=== PATIENT | female | born 1980 | race Caucasian/White ===

== ENCOUNTER 2018-10-22 11:12 | Outpatient (CLI) | payer MEDICAID ==
[~2018-10-22] VITALS: Ht 149.9 cm; Wt 71.7 kg
[2018-10-22 11:32] VITALS: Ht 149.9 cm; Wt 71.7 kg
[2018-10-22] MEDS ORDERED: PREN1TAB13 PO (11:32)
[2018-10-22 11:33] VITALS: BP 102/55; PULSE 71; RESP 18
--- NOTE | 2018-10-22 14:06 | TRIAGE ---
OB Triage Datetime Report Generated by CPN: 10/22/2018 14:06 Datetime: 10/22/2018 13:30 Stage of : OB Triage Maternal Assessment Level of Consciousness: Fully Conscious Labor Evaluation Frequency: NONE Monitor Mode: External Resting Tone Wykoff: Relaxed Heart Rate FHR Baseline Rate: 135 Monitor Mode: External US Variability: Moderate 6-25 bpm Accelerations: 15X15 Pain Assessment Pain Scale: 0 Pain Goal: 3 Vaginal Exam Membrane Status: Intact Vaginal Bleeding: None Datetime: 10/22/2018 12:30 Stage of : OB Triage Maternal Assessment Level of Consciousness: Fully Conscious Labor Evaluation Frequency: NONE Monitor Mode: External Resting Tone Wykoff: Relaxed Heart Rate FHR Baseline Rate: 135 Monitor Mode: External US Variability: Moderate 6-25 bpm Accelerations: 15X15 Category: Category I Pain Assessment Pain Scale: 0 Pain Goal: 3 Vaginal Exam Membrane Status: Intact Vaginal Bleeding: None Datetime: 10/22/2018 11:27 Assessment Type: Triage Maternal Assessment Level of Consciousness: Fully Conscious DTR's/Clonus: DTRs 2+; No Clonus Headache: Denies Blurred Vision: No Respiratory Effort: Unlabored; Regular Rhythm; Equal Expansion Breath Sounds, Left: Clear and Equal Breath Sounds, Right: Clear and Equal Nausea/Vomiting: Denies RUQ Epigastric Pain: Denies Lower Extremities Edema: None Degree: None Upper Extremities Edema: None Degree: None Facial Edema: None Fall Risk Assessment History of Falling: (0) No Secondary Diagnosis: (0) No Ambulatory Aid: (0) Bedrest/Nurse Assist IV Therapy: (0) No Gait: (0) Normal/Bedrest/Immobile Mental Status: (0) Oriented to Own Ability Fall Score: 0 Fall Risk Score Definition: No Risk: No action required Monitor Mode: External Monitor Mode: External US Datetime: 10/22/2018 11:25 Time of Arrival: 10/22/2018 10:46 EGA: 28.2 Arrived By: Ambulatory Arrived From: Home Chief Complaint: PT. HERE C/O VAG. BLEED SINCE THIS AM. Movement: Present Contractions: Denies/Absent Rupture of Membranes: Denies Vaginal Bleeding: None Vaginal Discharge: Denies Recent Sexual Intercouse: Denies Abdominal Trauma: Not Applicable Patient Complaints: None Time Provider Notified: 10/22/2018 11:36 Provider Notified: JASWANT Initial Plan: BPP/CBC/T_S/U-TOX/UA/
--- NOTE | 2018-10-22 14:35 | PN ---
Triage Information Date/Time October 22, 2018 Reason for visit: Vag spotting / bleeding Weeks of Gestation 28 weeks and 2 days /Para 4 para 3 Diabetes: none Hypertention: none Additional information 38-year-old with IUP at 28 weeks and 2 days presents with complaint of light spotting this morning at 5 00. Denies any LOF, Decreased movement, Objective Vital Signs Date Temp Pulse Resp B/P (MAP) Pulse Ox O2 O2 Flow FiO2 Time Delivery Rate 10/22/18 98.7 71 18 102/55 Room Air 11:33 (71) Heart Rate: 130's Heart Rate Comments Cat 1 and appropriate for GA Contractions: None Exam GA: A&O, NAD abdomen: Soft non tender, Size consistent with date No tenderness, no rebound tenderness, no rigidity NST: Cat 1 No contractions noted on the monitor Laboratory Tests Test 10/22/18 11:00 10/22/18 12:17 Urine Color YELLOW Urine Clarity SLIGHTLY CLOUDY A Urine pH 7.0 Urine Specific Spring 1.017 Urine Ketones NEGATIVE Urine Nitrite NEGATIVE Urine Bilirubin NEGATIVE Urine Urobilinogen NEGATIVE Urine Leukocyte Esterase 2+ H Urine Microscopic RBC 2 Urine Microscopic WBC 7 H Urine Squamous Epithelial Cells FEW Urine Bacteria FEW A Urine Mucus FEW A Urine Hemoglobin 1+ H Urine Glucose NEGATIVE Urine Total Protein NEGATIVE Urine Opiates Screen Negative Urine Barbiturates Negative Urine Amphetamines Screen Negative Urine Benzodiazepines Screen Negative Urine Cocaine Screen Negative Urine Cannabinoids Negative White Blood Count 10.4 Red Blood Count 3.84 L Hemoglobin 11.9 L Hematocrit 36.0 L Mean Corpuscular Volume 93.8 Mean Corpuscular Hemoglobin 31.0 Mean Corpuscular Hemoglobin Concent 33.1 Red Cell Distribution Width 13.1 Platelet Count 261 Mean Platelet Volume 9.9 Immature Granulocytes % 0.900 H Neutrophils % 59.3 Lymphocytes % 27.1 Monocytes % 8.4 Eosinophils % 3.8 Basophils % 0.5 Nucleated Red Blood Cells % 0.0 Immature Granulocytes # 0.090 H Neutrophils # 6.2 Lymphocytes # 2.8 Monocytes # 0.9 Eosinophils # 0.4 Basophils # 0.1 Nucleated Red Blood Cells # 0.0 Results/Medications Result Diagram: 10/22/18 1217 Results 24 hrs Laboratory Tests Test 10/22/18 11:00 10/22/18 12:17 Urine Color YELLOW Urine Clarity SLIGHTLY CLOUDY A Urine pH 7.0 Urine Specific [place] 1.017 Urine Ketones NEGATIVE Urine Nitrite NEGATIVE Urine Bilirubin NEGATIVE Urine Urobilinogen NEGATIVE Urine Leukocyte Esterase 2+ H Urine Microscopic RBC 2 Urine Microscopic WBC 7 H Urine Squamous Epithelial Cells FEW Urine Bacteria FEW A Urine Mucus FEW A Urine Hemoglobin 1+ H Urine Glucose NEGATIVE Urine Total Protein NEGATIVE Urine Opiates Screen Negative Urine Barbiturates Negative Urine Amphetamines Screen Negative Urine Benzodiazepines Screen Negative Urine Cocaine Screen Negative Urine Cannabinoids Negative White Blood Count 10.4 Red Blood Count 3.84 L Hemoglobin 11.9 L Hematocrit 36.0 L Mean Corpuscular Volume 93.8 Mean Corpuscular Hemoglobin 31.0 Mean Corpuscular Hemoglobin Concent 33.1 Red Cell Distribution Width 13.1 Platelet Count 261 Mean Platelet Volume 9.9 Immature Granulocytes % 0.900 H Neutrophils % 59.3 Lymphocytes % 27.1 Monocytes % 8.4 Eosinophils % 3.8 Basophils % 0.5 Nucleated Red Blood Cells % 0.0 Immature Granulocytes # 0.090 H Neutrophils # 6.2 Lymphocytes # 2.8 Monocytes # 0.9 Eosinophils # 0.4 Basophils # 0.1 Nucleated Red Blood Cells # 0.0 Imaging Results PROCEDURE: US OB biophysical profile. CLINICAL INDICATION: decreased movements, vaginal bleeding TECHNIQUE: Multiple sonographic images of the pelvis were obtained. The images were reviewed on a PACS workstation. COMPARISON: No prior studies are available for comparison. FINDINGS: There is a single live intrauterine gestation. Cardiac activity is present with 142 beats per minute. There is a vertex presentation. The placenta is posterior. There is no evidence of placental abruption. There is a normal amount of amniotic fluid with an YELENA = 11.7 cm. Biophysical profile: movement 2/2 tone 2/2. breathing 2/2 YELENA 2/2 Total 03/16 RPTAT: AA . IMPRESSION: Normal biophysical profile. . Disposition: Discharge Assessment/Plan IUP at 28 weeks and 2 days spotting, resolved Ultrasound does not show any evidence of abruption or previa No evidence of labor or abruption Spotting resolved RH positive labor precaution and kick counts discusseed Follow up in 48 hours after DC from the hospital discussed Patient verbalized understanding, all questions were answered to the patient's best satisfaction BESSIE MAN MD Oct 22, 2018 14:35
== END 2018-10-22 14:20 | disposition home or self-care (01) ==
LOC: L-D 11:12 → OBT 11:12
PROVIDERS: ATTEND Obstetrics & Gynecology
DX: O46.8X2 Other antepartum hemorrhage, second trimester (principal); Z3A.28 28 weeks gestation of pregnancy
CPT/HCPCS: 76818; 80307; 81001; 85025; 86850; 86900; 86901; 87086; Z7500; G0463

== ENCOUNTER 2019-01-05 20:28 | Inpatient (IN) | payer MEDICAID ==
[~2019-01-05] VITALS: Ht 144.8 cm; Wt 78.8 kg
[~2019-01-05 20:28] MED LIST: PREN1TAB13 PO
[2019-01-05 21:04] VITALS: BP 106/63; PULSE 79; RESP 18; Ht 144.8 cm; Wt 78.8 kg
[2019-01-05] MEDS ORDERED: LACTATED RINGER'S 1,000 ML IV SCH (21:54)
[2019-01-05] MEDS ORDERED: IBUPROFEN 600 MG TAB PO PRN (22:00)
[2019-01-05] MEDS ORDERED: OXYTOCIN 30 UNITS/LR 500 ML IV PRN (22:00)
[2019-01-05] MEDS ORDERED: CARBOPROST 250 MCG INJ IM PRN (22:00)
[2019-01-05] MEDS ORDERED: BUTORPHANOL 2 MG INJ IV PRN ×2 (22:00)
[2019-01-05] MEDS ORDERED: AMPICILLIN 2 GM/NS (PMX) 100 ML IV ONE (22:00)
[2019-01-05] MEDS ORDERED: MISOPROSTOL 200 MCG TAB PR PRN (22:00)
[2019-01-05] MEDS ORDERED: METHYLERGONOVINE 0.2 MG INJ IM PRN (22:00)
[2019-01-05] MEDS ORDERED: LIDOCAINE 1% (MPF) 30 ML INJ INJ PRN (22:00)
[2019-01-05] MEDS ORDERED: OXYTOCIN 30 UNITS/LR 500 ML IV SCH ×3 (22:00)
--- NOTE | 2019-01-05 22:16 | TRIAGE ---
OB Triage Datetime Report Generated by CPN: 01/05/2019 22:16 Datetime: 01/05/2019 22:11 Stage of : OB Triage Labor Evaluation Frequency: Occasional Monitor Mode: Palpation Duration (sec)2399: 50-60 Pattern: Normal: <= 5 Contractions in 10 Minutes Resting Tone Noonday: Relaxed Heart Rate FHR Baseline Rate: 130 Monitor Mode: External US Variability: Moderate 6-25 bpm Accelerations: 15X15 Decelerations: None Category: Category I Pain Assessment Pain Scale: 3 Pain Presence: Intermittent Pain Type: Contraction Pain Location: Abdomen Pain Relief Measures: Comfort Measures Datetime: 01/05/2019 21:22 Stage of : OB Triage Labor Evaluation Frequency: Occasional Monitor Mode: Palpation Duration (sec)2399: 50-60 Quality: Mild Pattern: Normal: <= 5 Contractions in 10 Minutes Resting Tone Noonday: Relaxed Heart Rate FHR Baseline Rate: 130 Monitor Mode: External US Variability: Moderate 6-25 bpm Accelerations: 15X15 Decelerations: None Category: Category I Pain Assessment Pain Scale: 3 Pain Presence: Intermittent Pain Type: Contraction Pain Location: Abdomen Pain Relief Measures: Comfort Measures Vaginal Exam Dilatation (cms): 3.0 Effacement (%): 60 Station: -2 Exam By: Omar, RN Datetime: 01/05/2019 20:58 Stage of : OB Triage Assessment Type: Triage Maternal Assessment Level of Consciousness: Fully Conscious DTR's/Clonus: DTRs 2+; No Clonus Headache: Denies Blurred Vision: No Respiratory Effort: Unlabored; Regular Rhythm; Equal Expansion Breath Sounds, Left: Clear and Equal Breath Sounds, Right: Clear and Equal Nausea/Vomiting: Denies RUQ Epigastric Pain: Denies Lower Extremities Edema: None Degree: None Upper Extremities Edema: None Degree: None Facial Edema: None Temperature Route: Oral Fall Risk Assessment History of Falling: (0) No Secondary Diagnosis: (0) No Ambulatory Aid: (0) Bedrest/Nurse Assist IV Therapy: (0) No Gait: (0) Normal/Bedrest/Immobile Mental Status: (0) Oriented to Own Ability Fall Score: 0 Fall Risk Score Definition: No Risk: No action required Monitor Mode: External Monitor Mode: External US Pain Assessment Pain Scale: 3 Pain Presence: Intermittent Pain Type: Contraction Pain Location: Abdomen Pain Goal: 0 Pain Relief Measures: Comfort Measures Datetime: 01/05/2019 20:56 Time of Arrival: 01/05/2019 20:21 EGA: 39.0 Arrived By: Ambulatory Arrived From: Home Chief Complaint: Mild abdominal pain, leaking (discharge) Movement: Present Contractions: Occasional Time Contractions Began: 01/05/2019 09:00 Rupture of Membranes: Unsure Vaginal Bleeding: None Vaginal Discharge: Present Abdominal Trauma: Not Applicable Patient Complaints: Other Time Provider Notified: 01/05/2019 21:50 Provider Notified: Initial Plan: EFM, VS, SVE Datetime: 10/22/2018 11:27 Fall Score: 0 Fall Risk Score Definition: No Risk: No action required Datetime: 10/22/2018 11:25 EGA: 28.2
[2019-01-06] MEDS ORDERED: AMPICILLIN 1 GM/NS (PMX) 50 ML IV SCH (02:00)
--- NOTE | 2019-01-06 05:24 | HP ---
Date/Time of Note Date/Time of Note DATE: 01/06/19 TIME: 05:17 OB - History Hx of Present Free Text/Dictation 38y.o here at 39w with uc's and leaking fluid. VE /-2 PNR is not available CAT I tracing uc's irregular GBS status not known admitted for expectant management poss augmentation Chief Complaint: uc's and leaking Estimated Due Date: Jan 12, 2019 : 4 Para: 3 Spontaneous : 0 Therapeutic : 0 Care: Other Ultrasounds: Other Obstetrical Complications: None Medical Complications: None Past Family/Social History * Past Medical, Surgical, Family and Obstetric Histories reviewed from chart. Blood Type: B+ Rubella: immune RPR/VDRL: Negative GBS Status: Unknown HBsAG: Negative OB Admission Exam Vital Signs Vital Signs Vital Signs Date Temp Pulse Resp B/P (MAP) Pulse Ox O2 O2 Flow FiO2 Time Delivery Rate 01/05/19 98.4 79 18 106/63 Room Air 21:04 (77) Physical Exam HEENT: WNL Heart: Rhythm Normal Lungs: Clear, Equal Abdomen: WNL Extremities: Normal Reflexes: Normal Cervical Dilatation: 3cm Effacement: 50% Station: -2 Membranes: Intact Amniotic Fluid: Unevaluable Heart Rate: 140's Accelerations: Accelerations Present Decelerations: No Decelerations Varibility: Moderate Contractions on Admission: >10 Minutes Apart Intensity: Mild Last 72 hours Lab Results CBC & BMP 01/05/19 22:30 OB Assessment/Plan Other Assessment: IUP 39w in early labor Plan: Expectant Management, Other (poss augmentation) AMOR AVILA MD January 06, 2019 05:24
--- NOTE | 2019-01-06 05:26 | LDN ---
Date/Time of Note Date/Time of Note DATE: 01/06/19 TIME: 05:24 Delivery Summary of normal male Weeks of Gestation 39w1d Placenta Delivered: Spontaneously, Intact & Complete Meconium: none Episiotomy: No Perineal laceration: 0 Anesthesia type: None Estimated blood loss: 300 Sponge & Needle done & correct: Yes All needle counts correct: Yes Any foreign bodies felt in the: No Delivery Information Sex Infant Sex: male Apgars 1 Minute: 8 5 Minute: 9 Suctioning Nose & mouth suctioned at sujey: Yes Umbilical Cord Umbilical cord with: 3 Vessels Cord presentations: no nuchal cord Cord Blood was obtained: Yes Mother & Baby Disposition Disposition Mom & Baby to Maternity; Good: Yes Mom transferred to: Other Baby to NICU: No () AMOR AVILA MD January 06, 2019 05:26
[2019-01-06 06:30] VITALS: BP 112/67; PULSE 72; RESP 18
[2019-01-06] MEDS ORDERED: OXYCODONE/ASPIRIN (4.88/325) TAB PO PRN ×2 (07:00)
[2019-01-06] MEDS ORDERED: CARBOPROST 250 MCG INJ IM PRN (07:00)
[2019-01-06] MEDS ORDERED: ZOLPIDEM 5 MG TAB PO PRN (07:00)
[2019-01-06] MEDS ORDERED: MISOPROSTOL 200 MCG TAB PR PRN (07:00)
[2019-01-06] MEDS ORDERED: MINERAL OIL LIGHT 10 ML VIAL TOP ONE (07:00)
[2019-01-06] MEDS ORDERED: WITCH HAZEL/GLYCERIN PAD PR PRN (07:00)
[2019-01-06] MEDS ORDERED: METHYLERGONOVINE 0.2 MG INJ IM PRN (07:00)
[2019-01-06] MEDS ORDERED: LANOLIN HPA 1 PKT TOP PRN (07:00)
[2019-01-06] MEDS ORDERED: BENZOCAINE 20% 56 ML SPRAY TOP PRN (07:00)
[2019-01-06] MEDS ORDERED: OXYTOCIN 30 UNITS/LR 500 ML IV PRN (07:00)
[2019-01-06 08:00] VITALS: BP 110/59; PULSE 67; RESP 16
[2019-01-06] MEDS: SENNA/DOCUSATE NA (8.6MG/50MG) TAB PO SCH ×2 (08:37→21:05)
[2019-01-06] MEDS: IBUPROFEN 600 MG TAB PO SCH ×3 (11:39→23:52)
[2019-01-06 12:00] VITALS: BP 100/62; PULSE 76; RESP 17
[2019-01-06 15:30] VITALS: BP 97/60; PULSE 64; RESP 16
--- NOTE | 2019-01-06 16:53 | QN ---
Documentation Comment NO b.m vss aafebrile fundus firm lochia mod carminable AMOR AVILA MD January 06, 2019 16:53
[2019-01-06 20:30] VITALS: BP 90/58; PULSE 74; RESP 16
[2019-01-07] VITALS: BP 98/65; PULSE 75; RESP 17
[2019-01-07 04:00] VITALS: BP 96/63; PULSE 78; RESP 17
[2019-01-07] MEDS: IBUPROFEN 600 MG TAB PO SCH ×4 (06:27→23:38)
[2019-01-07 08:00] VITALS: BP 94/50; PULSE 61; RESP 18
[2019-01-07] MEDS: SENNA/DOCUSATE NA (8.6MG/50MG) TAB PO SCH ×2 (09:21→21:54)
--- NOTE | 2019-01-07 11:09 | QN ---
Documentation Comment PPD #1 Pt doing well. Having some issues with sore nipples but is being assisted for this. Minimal bleeding. T=97.8 BP 94/50 Fundus firm. Lochia minimal. Ext 1+ edema. WBC 11.4 Hgb 12/ Plts 242K. P: Continue care. Plan d/c tomorrow. BAMBI WITT MD Jan 07, 2019 11:09
[2019-01-07 15:54] VITALS: BP 97/55; PULSE 77; RESP 18
[2019-01-07 20:10] VITALS: BP 103/55; PULSE 68; RESP 18
[2019-01-08 03:50] VITALS: BP 113/67; PULSE 72; RESP 18
[2019-01-08] MEDS: IBUPROFEN 600 MG TAB PO SCH ×2 (06:24→12:05)
[2019-01-08 08:00] VITALS: BP 112/68; PULSE 72; RESP 18
[2019-01-08] MEDS: SENNA/DOCUSATE NA (8.6MG/50MG) TAB PO SCH (08:50)
[2019-01-08] MEDS ORDERED: DIPHTH/TET/ACEL PERTUSS (ADULT) 0.5 ML VIAL IM* ONE (09:00)
--- NOTE | 2019-01-08 11:39 | QN ---
Documentation Comment PPD#2 is stable afebrile tolerates diet No VB +VM +Voids VS stable Gen NAD Abd soft NT ND Genitalia No blood at perineum --->Discharge plan TRAMAINE ALEX M.D. Jan 08, 2019 11:39
--- NOTE | 2019-01-08 14:49 | DS ---
Date/Time of Note Date/Time of Note DATE: 01/08/19 TIME: 14:48 Discharge Summary Admission/Discharge Info Admit Date/Time January 05, 2019 at 21:50 Discharge Date/Time 01/08/2019 Discharge Diagnosis Patient Condition: Good Hospital Course uneventful Home Meds Reported Medications Pnv95/Ferrous Fumarate/FA ( Vitamins Tablet) 1 Each Tablet, 1 EACH PO DAILY, TAB 10/22/18 Primary Care Provider Care Physician No Primary TRAMAINE ALEX M.D. Jan 08, 2019 14:49
--- NOTE | 2019-01-09 15:38 | DELSUM ---
Delivery Summary A-C Datetime Report Generated by CPN: 01/09/2019 15:38 DELIVERY PERSONNEL Lead Sales Consultant: Tersigni, Willa MATERNAL INFORMATION Delivery Anesthesia: None Medications in Delivery: LR with 30 units of pitocin Delivery QBL (ml): 300 Placenta Cultured: No Maternal Complications: None LABOR SUMMARY EDC: 01/12/2019 00:00 No. Babies in Womb: 1 Attempted: No Labor Anesthesia: None LABOR INFORMATION Reason for Induction: Not Applicable Onset of Labor: 01/05/2019 09:00 Complete Dilatation: 01/06/2019 04:41 Oxytocin: Augmentation Group B Beta Strep: Positive Antibiotics # of Doses: 2 Antibiotics Time of Last Dose: 01/06/2019 03:59 Steroids Given: None Reason Steroids Not Administered: Not Applicable MEMBRANES Membranes Rupture Method: Spontaneous Rupture of Membranes: 01/06/2019 03:41 Length of Rupture (hr): 1.15 Amniotic Fluid Color: Clear Amniotic Fluid Amount: Small Amniotic Fluid Odor: None STAGES OF LABOR Stage 1 hr: 19 Stage 1 min: 41 Stage 2 hr: 0 Stage 2 min: 9 Stage 3 hr: 0 Stage 3 min: 3 Total Time in Labor hr: 19 Total Time in Labor min: 53 VAGINAL DELIVERY Episiotomy: None Laceration Extension: N/A Laceration Type: None Laceration Repair: Not Applicable Initial Vag Sponge Count: 10 Final Vag Sponge Count: 10 Initial Vag Sharps Count: 1 Final Vag Sharps Count: 1 Sponge Count Correct: Yes; Vaginal Sweep Performed Sharps Count Correct: Yes BABY A INFORMATION Delivery Date/Time: 01/06/2019 04:50 Method of Delivery: Vaginal Born in Route : No : N/A Forceps: N/A Vacuum Extraction: N/A Shoulder Dystocia : N/A SHOULDER DYSTOCIA BABY A Delivery Date/Time: 01/06/2019 04:50 PRESENTATION/POSITION BABY A Presentation: Cephalic Cephalic Presentation: Vertex Vertex Position: Left Occipital Posterior Breech Presentation: N/A PLACENTA INFORMATION BABY A Placenta Delivery Time : 01/06/2019 04:53 Placenta Method of Delivery: Spontaneous Placenta Status: Delivered SCORES BABY A Heart Rate 1 min: >100 bpm Resp Effort 1 min: Good Cry Reflex Irritability 1 min: Cough/Sneeze/Pulls Away Muscle Tone 1 min: Some Flexion of Extrem Color 1 min: Body [place], Extremit Blue Resuscitation Effort 1 min: Tactile Stimulation SCORE 1 MIN: 8 Heart Rate 5 min: >100 bpm Resp Effort 5 min: Good Cry Reflex Irritability 5 min: Cough/Sneeze/Pulls Away Muscle Tone 5 min: Active Motion Color 5 min: Body [place], Extremit Blue Resuscitation Effort 5 min: Tactile Stimulation SCORE 5 MIN: 9 INFANT INFORMATION BABY A Gestational Age at Delivery: 39.1 Gestational Status: Full Term- 39- 40.6 Weeks Outcome : Liveborn Infant Condition : Stable Sex: Male IDENTIFICATION/MEDS BABY A ID Band Number: [id number] ID Band Location: Right Leg; Left Arm Sensor Applied: Yes Sensor Number: [id number] Sensor Location : Cord Clamp Vitamin K Given : Not Given Erythromycin Given: Not Given WEIGHT/LENGTH BABY A Birthweight (gm): 3650 Infant Weight (lb): 8 Infant Weight (oz): 1 Length (in): 19.00 Length (cm): 48.26 CORD INFORMATION BABY A No. Cord Vessels: 3 Nuchal Cord : N/A Cord Blood Taken: Yes Suction: Mouth; Nose ASSESSMENT BABY A Infant Complications: None Physical Findings at Delivery: Within Normal Limits Respirations: Intercostal Retractions Asset Protection Lead/ALS Called : Yes Care By: RT / Yousif Caldera RN Transferred To: Remains with Mother
== END 2019-01-08 15:20 | disposition home or self-care (01) | DRG 807 ==
LOC: OBT 20:28 → L-D 20:29 → OBT 21:50 → L-D 21:50 → PP1 01-06 06:22
PROVIDERS: ADMIT Obstetrics & Gynecology; ATTEND Obstetrics & Gynecology
PROC: 10E0XZZ Delivery of Products of Conception, External Approach (ICD-10-PCS; principal; 2019-01-06)
DX: O80 Encounter for full-term uncomplicated delivery (principal); Z37.0 Single live birth; Z3A.39 39 weeks gestation of pregnancy; Z23 Encounter for immunization
CPT/HCPCS: 84112; 85025; 85610; 85730; 86592; 86850; 86900; 86901; 87340; 90715; G0463; J0290; J0595; J2590; J7120